=== PATIENT | female | born 1950 | race Caucasian/White ===

== ENCOUNTER 2016-03-29 08:08 | Observation (INO) | payer MEDICARE, OTHER ==
[2016-03-29] MEDS ORDERED: ASPIRIN 81 MG TABLET, CHEWABLE PO ONE (08:40)
--- NOTE | 2016-03-29 08:46 | ER Document Report ---
ED General <SUDHAKARADDISON - Last Filed: 03/29/16 11:05> - General TRAVEL OUTSIDE OF THE [place] IN LAST 30 DAYS: No <BEANMATHEW - Last Filed: 03/29/16 15:51> - General Chief Complaint: Headache Stated Complaint: LEFT SIDE PAIN Notes: Patient is a 65-year-old female with past medical history significant for hypertension, hyperlipidemia presents emergency Department complaining of left arm pressure with new onset this morning when she was driving down to see her physician in [place]. She denies any chest pain, shortness of breath, dizziness, altered mental status or confusion. Patient states that she has had a headache on and off for the past week described as a general pressure in her head that is relieved by aspirin. She also admits to elevated blood pressure yesterday during her preemployment physical exam. Patient states that she started a new job 3 weeks ago and is been very stressed. Stress test in 2004 normal S medical history significant for hypertension, hyperlipidemia, anxiety, GERD Past surgical history significant for left shoulder replacement tonsils and adenoids Social history denies any tobacco use, alcohol, drug use Family history significant for CVA in her dad, coronary artery disease in a paternal grandfather PCP is Dr. Domenic Holly in [place] (MATHEW DEL ANGEL) - Related Data Allergies/Adverse Reactions: atorvastatin [From Lipitor] Allergy (Verified 03/29/16 08:43) bupropion [From Contrave] Allergy (Verified 03/29/16 08:43) cephalexin Allergy (Verified 03/29/16 08:43) clindamycin Allergy (Verified 03/29/16 08:43) lamotrigine [From Lamictal] Allergy (Verified 03/29/16 08:43) naltrexone [From Contrave] Allergy (Verified 03/29/16 08:43) oxycodone Allergy (Verified 03/29/16 08:43) Penicillins Allergy (Verified 03/29/16 08:43) Home Medications: Current Home Medications Bupropion HCl [Wellbutrin Xl 300mg 24hr Tablet] 300 mg PO DAILY 03/29/16 [ History] Esomeprazole Magnesium [Nexium] 40 mg PO DAILY 03/29/16 [History] Fluoxetine HCl [Prozac] 20 mg PO DAILY 03/29/16 [History] Mirabegron [Myrbetriq] 50 mg PO DAILY 03/29/16 [History] Past Medical History - General Information source: Patient - Social History Smoking Status: Never Smoker Chew tobacco use (# tins/day): No Frequency of alcohol use: None Drug Abuse: None Family History: CAD, CVA Patient has suicidal ideation: No Patient has homicidal ideation: No Renal/ Medical History: Denies: Hx Peritoneal Dialysis <MATHEW DEL ANGEL - Last Filed: 03/29/16 15:51> Review of Systems - Review of Systems Constitutional: No symptoms reported EENT: No symptoms reported Cardiovascular: See HPI Respiratory: No symptoms reported Gastrointestinal: No symptoms reported Genitourinary: No symptoms reported Female Genitourinary: No symptoms reported Musculoskeletal: See HPI Skin: No symptoms reported Hematologic/Lymphatic: No symptoms reported Neurological/Psychological: See HPI <MATHEW DEL ANGEL - Last Filed: 03/29/16 15:51> Physical Exam <ADDISON DE LA FUENTE - Last Filed: 03/29/16 11:05> <MATHEW DEL ANGEL - Last Filed: 03/29/16 15:51> - Vital signs Vitals: Temp Pulse Resp BP Pulse Ox 97.7 F 72 18 150/78 H 97 03/29/16 08:13 03/29/16 08:13 03/29/16 08:13 03/29/16 08:13 03/29/16 08:13 (ADDISON DE LA FUENTE) (MATHEW DEL ANGEL) - Notes Notes: PHYSICAL EXAM GENERAL: Alert, interacts well. HEAD: Normocephalic, atraumatic. EYES: Pupils equal, round, and reactive to light. Extraocular movements intact. ENT: Facial muscles symmetrical. Oral mucosa moist, tongue midline. NECK: Full range of motion. Supple. Trachea midline. LUNGS: Clear to auscultation bilaterally, no wheezes, rales, or rhonchi. No respiratory distress. HEART: Regular rate and rhythm. No murmurs, gallops, or rubs. ABDOMEN: Soft, nondistended, nontender. No guarding, rebound, or rigidity.. Bowel sounds present in all 4 quadrants. EXTREMITIES: Moves all 4 extremities spontaneously. No pronator drift. No edema , radial and dorsalis pedis pulses 2/4 bilaterally. No cyanosis. Strength 5/5 in all extremities NEUROLOGICAL: Alert and oriented x3. Normal speech. PSYCH: Normal affect, normal mood. SKIN: Warm, dry, normal turgor. No rashes or lesions noted. (MATHEW DEL ANGEL) Course - Laboratory Result Diagrams: 03/29/16 09:40 03/29/16 09:40 <ADDISON DE LA FUENTE - Last Filed: 03/29/16 11:05> - Laboratory Result Diagrams: 03/29/16 09:40 03/29/16 09:40 - Diagnostic Test Radiology reviewed: Image reviewed, Reports reviewed - EKG Interpretation by Me EKG shows normal: Sinus rhythm Rate: Normal Rhythm: NSR When compared to previous EKG there are: Previous EKG unavailable - Consults Dr. Mitch Monique Time consulted: 11:15 Consulted provider: will come to ER <MATHEW DEL AGNEL - Last Filed: 03/29/16 15:51> - Re-evaluation Re-evalutation: 03/29/16 11:05 Patient was presented to me by the advanced practitioner, we discussed the patient's case imaging and lab work concerns. Patient was evaluated by myself and I agree with the providers care plan (ADDISON DE LA FUENTE) 03/29/16 11:20 Patient is a 65-year-old female who is hemodynamically stable, no acute distress and afebrile who presented with new onset left shoulder pressure after having an elevated blood pressure reading yesterday. Her EKG does not show any ST elevations or depressions. CT the head did not reveal any acute changes or any concern for an acute CVA CBC was within normal limits as well as her CMP. Only acute change is an elevated troponin at 0.024. Given that she has a history of high cholesterol, high blood pressure, her age of 65 and that she is a female in addition with her presentation and elevated blood work indicated for admission for chest pain observation. Case was discussed with Dr. Mitch Monique for telemetry. Patient is agreeable with plan. (MATHEW DEL ANGEL) - Vital Signs Vital signs: Temp Pulse Resp BP Pulse Ox 98.4 F 72 16 141/64 H 98 03/29/16 14:59 03/29/16 14:59 03/29/16 14:59 03/29/16 14:59 03/29/16 14:59 (ADDISON DE LA FUENTE) (MATHEW DEL ANGEL) - Laboratory Laboratory results interpreted by me: 03/29/16 09:40 Hgb 11.6 L Hct 35.8 L RDW 15.0 H (ADDISON DE LA FUENTE) - Consults Dr. Mitch Monique Reason for consultation: 03/29/16 11:22 hospital admission (MATHEW DEL ANGEL) Discharge <ADDISON DE LA FUENTE - Last Filed: 03/29/16 11:05> - Discharge Admitting Provider: Hospitalist - Dr. Mitch Monique Unit Admitted: Telemetry <MATHEW DEL ANGEL - Last Filed: 03/29/16 15:51> - Discharge Clinical Impression: Chest pain Qualifiers: Chest pain type: unspecified Qualified Code(s): R07.9 - Chest pain, unspecified Condition: Stable Disposition: ADMITTED OBSERVATION
[2016-03-29 10:09] LABS: ABSOLUTE EOSINOPHILS # (AUTO) 0.1 10^3/uL (0.0-0.6); ABSOLUTE LYMPHOCYTES (AUTO) 1.3 10^3/uL (0.5-4.7); ABSOLUTE MONOCYTES (AUTO) 0.5 10^3/uL (0.1-1.4); ABSOLUTE NEUT (AUTO) 2.4 10^3/uL (1.7-8.2); BASOPHILS % (AUTO) 0.6 % (0-2); EOSINOPHILS % (AUTO) 2.7 % (0-6); HEMATOCRIT 35.8 % (36.0-47.0); HEMOGLOBIN 11.6 g/dL (12.0-15.5); LYMPHOCYTES % (AUTO) 30.6 % (13-45); MEAN CORPUSCULAR HEMOGLOBIN 28.5 pg (27.0-33.4); MEAN CORPUSCULAR HGB CONC 32.3 g/dL (32.0-36.0); MEAN CORPUSCULAR VOLUME 88 fl (80-97); MONOCYTES % (AUTO) 10.8 % (3-13); RED BLOOD COUNT 4.05 10^6/uL (3.72-5.28); SEGMENTED NEUTROPHILS % (AUTO) 55.3 % (42-78); WHITE BLOOD COUNT 4.3 10^3/uL (4.0-10.5)
[2016-03-29 10:31] LABS: ALANINE AMINOTRANSFERASE 27 U/L (9-52); ALBUMIN 3.5 g/dL (3.5-5.0); ALKALINE PHOSPHATASE 97 U/L (38-126); ANION GAP 10 (5-19); ASPARTATE AMINO TRANSFERASE 24 U/L (14-36); BILIRUBIN,TOTAL 0.4 mg/dL (0.2-1.3); BLOOD UREA NITROGEN 12 mg/dL (7-20); CALCIUM 9.1 mg/dL (8.4-10.2); CARBON DIOXIDE 24 mmol/L (22-30); CHLORIDE 106 mmol/L (98-107); CREATINE KINASE 108 U/L (30-135); CREATININE RESULT 0.71 mg/dL (0.52-1.25); GLUCOSE 88 mg/dL (75-110); POTASSIUM 4.5 mmol/L (3.6-5.0); SODIUM 140.4 mmol/L (137-145); TOTAL PROTEIN 6.5 g/dL (6.3-8.2)
[2016-03-29 10:42] LABS: CREATINE KINASE MB 0.43 ng/mL (<4.55); TROPONIN I 0.024 ng/mL
--- NOTE | 2016-03-29 11:44 | EKG REPORT ---
SEVERITY:- BORDERLINE ECG - SINUS RHYTHM BORDERLINE T ABNORMALITIES, ANTERIOR LEADS : Confirmed by: Maisha Tenorio MD 29-Mar-2016 11:44:06
[2016-03-29] MEDS ORDERED: LISINOPRIL 10 MG TABLET PO ONE (13:53)
--- NOTE | 2016-03-29 15:56 | PDOC H&P ---
History of Present Illness Admission Date/PCP: 03/29/16 11:11 Dr. Holly in [facility], [place] Patient complains of: Left arm pain History of Present Illness: VIPIN FENTON is a 65 year old female with past medical history significant for hypertension, hyperlipidemia presents emergency Department complaining of left arm pressure with new onset this morning when she was driving down to see her physician in [place]. She denies any chest pain, shortness of breath, dizziness, altered mental status or confusion. Patient states that she has had a headache on and off for the past week described as a general pressure in her head that is relieved by aspirin. She also admits to elevated blood pressure yesterday during her preemployment physical exam. The patient states she had a stress test in 2004 which was normal. The patient states that she's also had hypertension in the past however her blood pressure medications were stopped because she felt very poorly while she was only minimal as well as admits to anemia during that time. Patient states that she started a new job 3 weeks ago and is been very stressed.The patient was referred to the hospitalists for observation and management. MEDICATIONS: The medications listed in this document may have been auto- populated from previous contact and may not been verified or reconciled. This may not be an accurate reflection of the patient's home medication(s); however, authors are unable to edit or delete the medications listed in this document as "home medications". Past Medical History Cardiac Medical History: Reports: Hyperlipidema, Hypertension GI Medical History: Reports: Gastroesophageal Reflux Disease Past Surgical History Past Surgical History: Reports: Orthopedic Surgery - Left total shoulder replacement Social History Information Source: Patient Occupation: Speech pathologist Lives with: Alone Smoking Status: Never Smoker Frequency of Alcohol Use: None Hx Recreational Drug Use: No Hx Prescription Drug Abuse: No - Advance Directive Resuscitation Status: Full Code Surrogate healthcare decision maker:: Anupama Azul [phone] Family History Family History: Reviewed & Not Pertinent Parental Family History Reviewed: Yes - father: from motor vehicle collision Children Family History Reviewed: NA Sibling(s) Family History Reviewed.: Yes - The patient is estranged but as far she knows they are alive and healthy Medication/Allergy Home Medications: Bupropion HCl [Wellbutrin Xl 300mg 24hr Tablet] 300 mg PO DAILY 01/24/17 Esomeprazole Magnesium [Nexium] 40 mg PO DAILY 03/29/16 Fluoxetine HCl [Prozac] 20 mg PO DAILY 03/29/16 Mirabegron [Myrbetriq] 50 mg PO DAILY 03/29/16 Allergies/Adverse Reactions: atorvastatin [From Lipitor] Allergy (Verified 03/29/16 08:43) bupropion [From Contrave] Allergy (Verified 03/29/16 08:43) cephalexin Allergy (Verified 03/29/16 08:43) clindamycin Allergy (Verified 03/29/16 08:43) lamotrigine [From Lamictal] Allergy (Verified 03/29/16 08:43) naltrexone [From Contrave] Allergy (Verified 03/29/16 08:43) oxycodone Allergy (Verified 03/29/16 08:43) Penicillins Allergy (Verified 03/29/16 08:43) Review of Systems Constitutional: ABSENT: chills, fever(s), headache(s), weight gain, weight loss Eyes: ABSENT: visual disturbances Ears: ABSENT: hearing changes Cardiovascular: PRESENT: chest pain. ABSENT: dyspnea on exertion, edema, orthropnea, palpitations Respiratory: ABSENT: cough, hemoptysis Gastrointestinal: ABSENT: abdominal pain, constipation, diarrhea, hematemesis, hematochezia, nausea, vomiting Genitourinary: ABSENT: dysuria, hematuria Musculoskeletal: ABSENT: joint swelling Integumentary: ABSENT: rash, wounds Neurological: ABSENT: abnormal gait, abnormal speech, confusion, dizziness, focal weakness, syncope Psychiatric: ABSENT: anxiety, depression, homidical ideation, suicidal ideation Endocrine: ABSENT: cold intolerance, heat intolerance, polydipsia, polyuria Hematologic/Lymphatic: ABSENT: easy bleeding, easy bruising Physical Exam Vital Signs: Temp Pulse Resp BP Pulse Ox 98.4 F 72 16 141/64 H 98 03/29/16 14:59 03/29/16 14:59 03/29/16 14:59 03/29/16 14:59 03/29/16 14:59 General appearance: PRESENT: no acute distress, cooperative, well-developed, well-nourished Head exam: PRESENT: atraumatic, normocephalic Eye exam: PRESENT: conjunctiva pink, EOMI, PERRLA. ABSENT: scleral icterus Ear exam: PRESENT: normal external ear exam Mouth exam: PRESENT: moist, tongue midline Neck exam: ABSENT: carotid bruit, JVD, lymphadenopathy, thyromegaly Respiratory exam: PRESENT: clear to auscultation dave. ABSENT: rales, rhonchi, wheezes Cardiovascular exam: PRESENT: RRR. ABSENT: diastolic murmur, rubs, systolic murmur Pulses: PRESENT: normal dorsalis pedis pul Vascular exam: PRESENT: normal capillary refill GI/Abdominal exam: PRESENT: normal bowel sounds, soft. ABSENT: distended, guarding, mass, organolmegaly, rebound, tenderness Rectal exam: PRESENT: deferred Extremities exam: PRESENT: full ROM. ABSENT: calf tenderness, clubbing, pedal edema Neurological exam: PRESENT: alert, awake, oriented to person, oriented to place , oriented to time, oriented to situation, CN II-XII grossly intact. ABSENT: motor sensory deficit Psychiatric exam: PRESENT: appropriate affect, normal mood. ABSENT: homicidal ideation, suicidal ideation Skin exam: PRESENT: dry, intact, warm. ABSENT: cyanosis, rash Results Laboratory Results: Labs- Last Values WBC 4.3 10^3/uL (4.0-10.5) 03/29/16 09:40 RBC 4.05 10^6/uL (3.72-5.28) 03/29/16 09:40 Hgb 11.6 g/dL (12.0-15.5) L 03/29/16 09:40 Hct 35.8 % (36.0-47.0) L 03/29/16 09:40 MCV 88 fl (80-97) 03/29/16 09:40 MCH 28.5 pg (27.0-33.4) 03/29/16 09:40 MCHC 32.3 g/dL (32.0-36.0) 03/29/16 09:40 RDW 15.0 % (11.5-14.0) H 03/29/16 09:40 Plt Count 337 10^3/uL (150-450) 03/29/16 09:40 Seg Neutrophils % 55.3 % (42-78) 03/29/16 09:40 Lymphocytes % 30.6 % (13-45) 03/29/16 09:40 Monocytes % 10.8 % (3-13) 03/29/16 09:40 Eosinophils % 2.7 % (0-6) 03/29/16 09:40 Basophils % 0.6 % (0-2) 03/29/16 09:40 Absolute Neutrophils 2.4 10^3/uL (1.7-8.2) 03/29/16 09:40 Absolute Lymphocytes 1.3 10^3/uL (0.5-4.7) 03/29/16 09:40 Absolute Monocytes 0.5 10^3/uL (0.1-1.4) 03/29/16 09:40 Absolute Eosinophils 0.1 10^3/uL (0.0-0.6) 03/29/16 09:40 Absolute Basophils 0.0 10^3/uL (0.0-0.2) 03/29/16 09:40 Sodium 140.4 mmol/L (137-145) 03/29/16 09:40 Potassium 4.5 mmol/L (3.6-5.0) 03/29/16 09:40 Chloride 106 mmol/L (98-107) 03/29/16 09:40 Carbon Dioxide 24 mmol/L (22-30) 03/29/16 09:40 Anion Gap 10 (5-19) 03/29/16 09:40 BUN 12 mg/dL (7-20) 03/29/16 09:40 Creatinine 0.71 mg/dL (0.52-1.25) 03/29/16 09:40 Est GFR ( Amer) > 60 (>60) 03/29/16 09:40 Est GFR (Non-Af Amer) > 60 (>60) 03/29/16 09:40 Glucose 88 mg/dL (75-110) 03/29/16 09:40 Calcium 9.1 mg/dL (8.4-10.2) 03/29/16 09:40 Total Bilirubin 0.4 mg/dL (0.2-1.3) 03/29/16 09:40 Direct Bilirubin 0.0 mg/dL (0.0-0.3) 03/29/16 09:40 AST 24 U/L (14-36) 03/29/16 09:40 ALT 27 U/L (9-52) 03/29/16 09:40 Alkaline Phosphatase 97 U/L (38-126) 03/29/16 09:40 Creatine Kinase 108 U/L (30-135) 03/29/16 09:40 CK-MB (CK-2) 0.43 ng/mL (<4.55) 03/29/16 09:40 Troponin I < 0.012 ng/mL 03/29/16 13:55 Total Protein 6.5 g/dL (6.3-8.2) 03/29/16 09:40 Albumin 3.5 g/dL (3.5-5.0) 03/29/16 09:40 Impressions: Chest X-Ray 03/29/16 08:40 IMPRESSION: No acute changes Large retrocardiac hiatal hernia Head CT 03/29/16 08:40 IMPRESSION: NORMAL BRAIN CT WITHOUT CONTRAST. Assessment & Plan - Diagnosis (1) Chest pain Qualifiers: Chest pain type: unspecified Qualified Code(s): R07.9 - Chest pain, unspecified Is this a current diagnosis for this admission?: YesPlan: Currently chest pain-free. This may be secondary to stress as well as the patient's hypertension. However given risk factors will schedule for Cardiolite stress test. Will observe the patient continues telemetry unit, obtain serial cardiac enzymes, repeat EKG, and obtain lipid panel in the a.m. Given the patient's risk factors will schedule for Cardiolite stress test. (2) Hypertension Qualifiers: Hypertension type: essential hypertension Qualified Code(s): I10 - Essential (primary) hypertension Is this a current diagnosis for this admission?: YesPlan: Will start the patient on moderate dose farrah. And check blood pressures and follow. (3) Obesity Qualifiers: Obesity type: due to excess calories Is this a current diagnosis for this admission?: YesPlan: Will encourage weight reduction (4) GERD (gastroesophageal reflux disease) Qualifiers: Esophagitis presence: without esophagitis Qualified Code(s): K21.9 - Gastro-esophageal reflux disease without esophagitis Is this a current diagnosis for this admission?: YesPlan: Will continue home medications. (5) DVT prophylaxis Is this a current diagnosis for this admission?: YesPlan: Will add Lovenox - Time Time Spent with patient: Time spent on this admission including assessment, plan, physical examination, and patient education is 50 minutes. Time Spent: 50 to 70 Minutes Medications reviewed and adjusted accordingly: Yes Anticipated discharge: Home Within: within 24 hours Disposition: The patient is a full code. Pending patient's symptomatology and diagnostic findings will reevaluate in the a.m.
[2016-03-29] MEDS: LANSOPRAZOLE 30 MG TAB.RAP.DR PO SCH (17:52)
[2016-03-29] MEDS ORDERED: FLUOXETINE HCL 20 MG CAPSULE PO SCH (18:00)
[2016-03-29] MEDS: LISINOPRIL 10 MG TABLET PO SCH (22:35)
[2016-03-29] MEDS: BUPROPION HCL 75 MG TABLET PO SCH (23:17)
[2016-03-30] MEDS ORDERED: BUPROPION HCL 75 MG TABLET ONE (00:42)
[2016-03-30] MEDS: LANSOPRAZOLE 30 MG TAB.RAP.DR PO SCH (05:33)
[2016-03-30 06:25] LABS: CHOLESTEROL 241.53 mg/dL (0-200); Direct HDL 44 mg/dL (>40); TRIGLYCERIDES 173 mg/dL (<150)
[2016-03-30 06:35] LABS: DIRECT LDL 168 mg/dL (<100)
[2016-03-30 06:38] LABS: VLDL CHOLESTEROL 34.6 mg/dL (10-31)
[2016-03-30] MEDS ORDERED: ENOXAPARIN SODIUM INJ 40 MG/0.4 ML DISP.SYRIN SUBCUT SCH (08:00)
[2016-03-30] MEDS ORDERED: (PENDING PHARMACY ID) (Mirabegron [Myrbetriq] 50 MG) PO SCH (10:00)
[2016-03-30] MEDS: LISINOPRIL 10 MG TABLET PO SCH (12:58)
[2016-03-30] MEDS: BUPROPION HCL 75 MG TABLET PO SCH (12:58)
--- NOTE | 2016-03-30 14:37 | DRAGON STRESS TEST REPORT ---
INTRAVENOUS LEXISCAN CARDIOLITE STRESS TEST USING SINGLE PHOTON EMMISION COMPUTERIZED TOMOGRAPHIC. DATE OF PROCEDURE: March 30, 2016 INDICATION : Chest pain and shortness of breath CARDIAC RISK FACTORS: Hypertension RESTING EKG: Sinus rhythm with some minor nonspecific T wave changes STRESS EKG: No significant changes noted with LexiScan bolus REASON FOR TERMINATION: Protocol. PROCEDURE REPORT: Baseline heart rate 76 beats per minute with blood pressure of 123/51. Patient had no significant complaints. Heart rate at 2 minutes post bolus 94 with a blood pressure of 138/58. 3 minutes post bolus heart rate 94 with blood pressure of 138/58. No significant EKG changes were noted. Patient had no significant complaints during the procedure or postprocedure. CONCLUSIONS: Normal EKG and hemodynamic response to IV LexiScan. NUCLEAR DATA: At rest the patient was given 14.77 millicuries of technetium 99 sestamibi injected intravenously. As per protocol rest gated SPECT images were obtained. Subsequently the patient was given intravenous LexiScan at a dose of 0.4 mg in 5 mL intravenously, followed by flush with normal saline. Subsequently the stress dose of 43.6 millicuries of technetium 99 sestamibi was injected intravenously. As per protocol stress gated images were obtained. NUCLEAR INTERPRETATION: Both raw and processed data were used for interpretation. Visual, qualitative, computer-generated quantitative data was used. There was good myocardial uptake of technetium compound. Motion artifact and soft tissue attenuations were noted. Increased visceral uptake was noted. No definitive areas of transient perfusion defect noted. No definitive areas of fixed perfusion defect or scars noted. EKG gated imaging showed LV EF at 49 %, rest and stress gated EF similar visually. T. I D. ratio was 1.17. Lung heart ratio noted to be within normal limits 0.31. No significant extracardiac and abnormal radiotracer activities were noted. RV free wall uptake was noted to be borderline increased. IMPRESSION: Also refer to comments under nuclear interpretation. Also test results needs to be interpreted in the context of pretest probability. 1. There is no definitive scintigraphic evidence of LexiScan induced myocardial ischemia. 2. There is no definitive scintigraphic evidence of myocardial infarction/scar. 3. EKG gated imaging shows left ejection fraction of approximately at 49 %. 4. Clinical correlation requested as occasionally single vessel disease or balanced ischemia could be missed. In approximately 10% of the cases Lexiscan may not cause adequate vasodilatory stress. RECOMMENDATIONS: Aggressive risk factor modification, medical therapy. Clinical correlation with echocardiogram derived ejection fraction. Inability to exercise by itself can lead to increased cardiovascular event risks. Consider cardiology consultation if clinically indicated. I AM AVAILABLE FOR CARDIOLOGY CONSULTATION AND FOLLOWUP IF REQUESTED BY PMD [facility] M.D., MRCP Supervisor [employer] volleyball coach, Board certified in cardiovascular diseases, Nuclear cardiology, Echocardiography Cardiac CT and cardiac MRI Ph. [phone] [facility]
[2016-03-30] MEDS ORDERED: REGADENOSON INJ 0.4 MG/5 ML DISP.SYRIN IV ONE (14:40)
--- NOTE | 2016-03-30 14:50 | Physician Advisory Note ---
Physician Advisor ProgressNote .: [facility] for [facility]. Physician Advisor Statement: Nice documentation - even already stating most likely cause of CP in notes already! You do such a great job. Any suspicions on type of anemia? (chronic nutritional Fe defic? chronic blood loss Fe defic? chronic nutritional folate defic? ...] CK
--- NOTE | 2016-03-30 14:55 | EKG REPORT ---
SEVERITY:- BORDERLINE ECG - SINUS RHYTHM BORDERLINE T WAVE ABNORMALITIES : Confirmed by: Maisha Tenorio MD 30-Mar-2016 14:54:43
--- NOTE | 2016-03-30 14:59 | PDOC CONSULTATION ---
[id number]: Chest pain History of Present Illness Admission Date/PCP: 03/29/16 11:11 History of Present Illness: VIPIN FENTON is a 65 year old female with past medical history significant for hypertension, hyperlipidemia presents emergency Department complaining of left arm pressure with new onset this morning when she was driving down to see her physician in [place]. She denies any chest pain, shortness of breath, dizziness, altered mental status or confusion. Patient states that she has had a headache on and off for the past week described as a general pressure in her head that is relieved by aspirin. She also admits to elevated blood pressure yesterday during her preemployment physical exam. The patient states she had a stress test in 2004 which was normal. The patient states that she's also had hypertension in the past however her blood pressure medications were stopped because she felt very poorly while she was only minimal as well as admits to anemia during that time. Patient states that she started a new job 3 weeks ago and is been very stressed.The patient was referred to the hospitalists for observation and management. Patient claims history of sleep disorder. She claims she had a sleep study about a year or 2 ago which was noted to be negative. Patient gives history of snoring, difficulty falling asleep and staying asleep. She has some daytime sleepiness. Above history reviewed and confirmed. Past Medical History Cardiac Medical History: Reports: Hyperlipidema, Hypertension GI Medical History: Reports: Gastroesophageal Reflux Disease Psychiatric Medical History: Reports: Depression Past Surgical History Past Surgical History: Reports: Orthopedic Surgery - Left total shoulder replacement Social History Lives with: Alone Smoking Status: Never Smoker Frequency of Alcohol Use: None Hx Recreational Drug Use: No Drugs: None Hx Prescription Drug Abuse: No - Advance Directive Resuscitation Status: Full Code Family History Family History: Reviewed & Not Pertinent Parental Family History Reviewed: Yes Children Family History Reviewed: Yes Sibling(s) Family History Reviewed.: Yes - Negative for premature coronary artery disease or sudden cardiac in the family amongst first degree relatives. Medication/Allergy Home Medications: Bupropion HCl [Wellbutrin Xl 300mg 24hr Tablet] 300 mg PO DAILY 03/29/16 Esomeprazole Magnesium [Nexium] 40 mg PO DAILY 03/29/16 Fluoxetine HCl [Prozac] 20 mg PO DAILY 03/29/16 Mirabegron [Myrbetriq] 50 mg PO DAILY 03/29/16 Lisinopril [Prinivil 10 mg Tablet] 10 mg PO Q12 #60 tablet 03/30/16 Allergies/Adverse Reactions: atorvastatin [From Lipitor] Allergy (Verified 03/29/16 08:43) bupropion [From Contrave] Allergy (Verified 03/29/16 08:43) cephalexin Allergy (Verified 03/29/16 08:43) clindamycin Allergy (Verified 03/29/16 08:43) lamotrigine [From Lamictal] Allergy (Verified 03/29/16 08:43) naltrexone [From Contrave] Allergy (Verified 03/29/16 08:43) oxycodone Allergy (Verified 03/29/16 08:43) Penicillins Allergy (Verified 03/29/16 08:43) Review of Systems Review of Systems: Please see history of present illness and past medical history as wall. Constitutional: No fever or chills reported. Head : No recent chronic headaches, recent head injury. Eyes: No recent eye pain, diplopia, redness, discharge, acute visual changes. Ears: No recent chronic ear pain, acute hearing loss, ear discharge. Oral cavity: No recent ulcerations, bleeding, oral cavity discomfort. Neck: No recent acute neck pain reported. Hematologic: No recent easy bruising or bleeding or hematologic malignancy reported. Lymphatic: No recent lymphatic malignancy, chronic lymphadenopathy reported yet Cardiovascular system review: See history of present illness. Respiratory system review: No recent chronic cough, hemoptysis, blood clots in the lungs reported. Mild Shortness of breath on exertion Gastrointestinal system review: Negative for any recent acute or chronic abdominal pain, hematemesis, melena, recent change in bowel habits. Genitourinary system review: No recent acute or chronic hematuria, flank pain, UTI etc. reported. Skin system review: Negative for any recent abnormal bruising, no rash, no pruritus reported. Neurologic: No prior history of strokes, mini strokes, seizure disorder. Psychologic: No history of major psychosis or depression reported. Musculoskeletal: Minor aches and pains reported. No acute joint swelling reported. Endocrine: No recent polyuria, polydipsia, recent heat or cold intolerance. Physical Exam Vital Signs: Temp Pulse Resp BP Pulse Ox 97.3 F 77 12 126/44 H 98 03/30/16 12:14 03/30/16 12:14 03/30/16 12:14 03/30/16 12:14 03/30/16 12:14 Intake & Output 03/29/16 03/30/16 03/31/16 06:59 06:59 06:59 Intake Total 0 Balance 0 Weight 103.1 kg Exam: GENERAL: well-nourished and in no acute distress. Alert and oriented x3 HEAD: Atraumatic, normocephalic. EYES: Pupils equal round and reactive to light, extraocular movements intact, sclera anicteric, conjunctiva are normal. ENT: TMs normal, nares patent, oropharynx clear without exudates. Moist mucous membranes. No oral ulcerations or bleeding gums noted NECK: supple without lymphadenopathy. Trachea is central. No cervical or axillary lymphadenopathy noted. Carotids are 2+, JVD WNL LUNGS: Respiration seems nonlabored, no significant accessory muscle action noted. Breath sounds clear to auscultation bilaterally and equal. No wheezes rales or rhonchi. No significant dullness noted on percussion. CHEST: Palpation of the chest wall shows no significant chest wall tenderness or abnormalities. HEART: [place] [employer], No PSH, 1/6 ANGELA aortic area, 1/6 martinez systolic murmur mitral area, no rubs, no gallops. ABDOMEN: Soft, no significant tenderness appreciated, normoactive bowel sounds. No guarding, no rebound. No rigidity noted . No masses appreciated. EXTREMITIES: Pedal pulses are 1-2+, no calf tenderness noted. No clubbing or cyanosis.trace to 1+ pedal edema noted NEUROLOGICAL: Focused neurological exam showed no significant neurologic deficit. Normal speech, no focal weakness appreciated. PSYCH: Normal mood, normal affect. Judgment and insight within normal limits. SKIN: No significant ecchymosis, rash, ulcerations or signs of pruritus noted. MUSCULOSKELETAL EXAM: No significant joint swelling noted. Results Laboratory Results: 03/30/16 05:00 Triglycerides 173 H Cholesterol 241.53 H LDL Cholesterol Direct 168 H VLDL Cholesterol 34.6 H HDL Cholesterol 44 03/29/16 03/29/16 13:55 20:55 Troponin I < 0.012 < 0.012 Impressions: Chest X-Ray 03/29/16 08:40 IMPRESSION: No acute changes Large retrocardiac hiatal hernia Head CT 01/24/17 08:40 IMPRESSION: NORMAL BRAIN CT WITHOUT CONTRAST. Assessment & Plan - Diagnosis (1) Chest pain Qualifiers: Chest pain type: unspecified Qualified Code(s): R07.9 - Chest pain, unspecified Is this a current diagnosis for this admission?: Yes (2) GERD (gastroesophageal reflux disease) Qualifiers: Esophagitis presence: without esophagitis Qualified Code(s): K21.9 - Gastro-esophageal reflux disease without esophagitis Is this a current diagnosis for this admission?: Yes (3) Hypertension Qualifiers: Hypertension type: essential hypertension Qualified Code(s): I10 - Essential (primary) hypertension Is this a current diagnosis for this admission?: Yes (4) Obesity Qualifiers: Obesity type: due to excess calories Is this a current diagnosis for this admission?: Yes (5) Dyslipidemia Is this a current diagnosis for this admission?: Yes (6) Sleep-disordered breathing Is this a current diagnosis for this admission?: Yes - Notes Notes: Chest pain: Patient has some typical and atypical features of chest pain. Cardiac enzymes so far has been negative. Electrocardiogram did not show any definitive ST segment changes. Multiple differential diagnoses exist in this patient. In descending order of probability this includes underlying coronary artery disease, gastroesophageal reflux, musculoskeletal pain, referred pain from elsewhere, anxiety panic disorder etc.Patient has significant cardiac risk factors, which indicates that there is a intermediate probability of chest discomfort coming from underlying CAD. Feel that it would need to be evaluated further. Discussed evaluation to assess this. In this regard risk benefits of nuclear stress test and other alternative processes were discussed in detail. The patient prefers to undergo nuclear stress test. The small risk of radiation , myocardial infarction, , cardiac arrhythmias, respiratory distress etc. were discussed. Patient understood the risks and gave informed consent. Nuclear stress test was therefore scheduled and was performed. Hypertension:Blood pressure goal in this patient is 140/90 or less. This was discussed with the patient. Currently blood pressure under reasonable control. Better medication for this patient are CANDELARIO inhibitor/ARB/beta annmarie etc. discussed side effects of uncontrolled hypertension and also severe hypotension. Obesity:Discussed adverse effect of overweight/obesity on cardiovascular event rate, sleep apnea, diabetes and hypertension et cetera. Patient has been recommended weight loss. Patient advised in weight loss. In this regard portion control, substitution, calorie restriction and regular exercise plan discussed. Patient informed that I would be happy to help for outpatient management of weight loss. Risk associated with being overweight and obesity discussed. This included both mechanical and metabolic complications. Sleep disorder: This is suspect that based on patient's symptoms of snoring, daytime fatigue and somnolence. Patient also has difficulty falling asleep and staying asleep. Patient has obesity and oropharyngeal exams suggest high probability of underlying sleep apnea syndrome. Have discussed this with the patient. Discussed increased risk of cardiovascular event rate, cerebrovascular accident, cardiac arrhythmias, uncontrolled hypertension etc. as being associated with untreated sleep apnea. Discussed that we'll be happy to schedule this as an outpatient. Patient has been recommended weight loss, sleep hygiene. Dyslipidemia:Patient noted to have dyslipidemia. LDL goal is less than 70. Recommend statin therapy at least intermediate or high dose, of high potency status. Periodic lipid panel and liver panel is indicated. Patient to report any significant muscle discomfort or other side effects. Patient was seen multiple times. In the morning nuclear stress test procedure, risks benefits, alternatives were discussed. Patient seen during the stress test. Patient also seen after stress test when results were discussed with the patient in detail. Patient's questions were answered. Nuclear stress test results were discussed with the patient. Patient was informed that no definitive evidence of pharmacologic stress-induced ischemia noted. No definite fixed defects were noted. Patient informed that occasionally significant single vessel disease or balanced ischemia could be missed. However based on the current study results, would recommend aggressive risk factor modification and medical therapy. It may also be worthwhile to consider evaluation or empiric management of other causes of chest pain. Should no other cause be found and if persistent in having chest pain, then cardiac catheterization should be considered. Right now, recommendations are for aggressive risk factor modification and medical management. - Time Time Spent: 30 to 50 Minutes - More than 50% of the time spent coordinating care , discussing management plans with involved caregivers. Management plans discussed with involved personnels. Medical decision making was of moderate complexity.CODE STATUS was discussed, patient remains full code. Multiple medical problems were addressed. Medications reviewed and adjusted accordingly: Yes
[2016-03-30 15:21] VITALS: BP 127/56
--- NOTE | 2016-03-30 16:58 | PDOC DISCHARGE SUMMARY ---
General - Admit/Disc Date/PCP Admission Date/Primary Care Provider: 03/29/16 11:11 Dr. Holly Discharge Date: 03/30/16 - Discharge Diagnosis (1) Dyslipidemia Is this a current diagnosis for this admission?: Yes (2) Chest pain Is this a current diagnosis for this admission?: Yes (3) Hypertension Is this a current diagnosis for this admission?: Yes (4) Obesity Is this a current diagnosis for this admission?: Yes (5) GERD (gastroesophageal reflux disease) Is this a current diagnosis for this admission?: Yes (6) DVT prophylaxis Is this a current diagnosis for this admission?: Yes - Additional Information Resuscitation Status: Full Code Discharge Diet: Cardiac Discharge Activity: Activity As Tolerated Home Medications: Bupropion HCl [Wellbutrin Xl 300mg 24hr Tablet] 300 mg PO DAILY 03/29/16 Esomeprazole Magnesium [Nexium] 40 mg PO DAILY 03/29/16 Fluoxetine HCl [Prozac] 20 mg PO DAILY 03/29/16 Mirabegron [Myrbetriq] 50 mg PO DAILY 03/29/16 Lisinopril [Prinivil 10 mg Tablet] 10 mg PO Q12 #60 tablet 03/30/16 History of Present Illness Patient complains of: Chest pain History of Present Illness: VIPIN EFNTON is a 65 year old female with past medical history significant for hypertension, hyperlipidemia presents emergency Department complaining of left arm pressure with new onset this morning when she was driving down to see her physician in [place]. She denies any chest pain, shortness of breath, dizziness, altered mental status or confusion. Patient states that she has had a headache on and off for the past week described as a general pressure in her head that is relieved by aspirin. She also admits to elevated blood pressure yesterday during her preemployment physical exam. The patient states she had a stress test in 2004 which was normal. The patient states that she's also had hypertension in the past however her blood pressure medications were stopped because she felt very poorly while she was only minimal as well as admits to anemia during that time. Patient states that she started a new job 3 weeks ago and is been very stressed.The patient was referred to the hospitalists for observation and management. Hospital Course Hospital Course: The patient was observed in a continues telemetry unit, serial cardiac enzymes were obtained which were nonsuggestive. The patient's EKG revealed no acute changes and the patient had no events on monitoring engineer. Patient had no further replication of symptoms. The patient's Cardiolite stress test will was unremarkable. The patient was found to have significant dyslipidemia however the patient's but unable to tolerate statins in the past. I discussed other alternatives with the patient however she wishes to defer this to her primary care provider. The patient was seen and evaluated and cleared for discharge from a cardiology perspective. Physical Exam Vital Signs: Temp Pulse Resp BP Pulse Ox 97.3 F 77 12 127/56 H 98 03/30/16 15:15 03/30/16 15:15 03/30/16 15:15 03/30/16 15:15 03/30/16 15:15 Intake & Output 03/28/16 03/29/16 03/30/16 23:59 23:59 23:59 Intake Total 0 Balance 0 Weight 103.1 kg General appearance: PRESENT: no acute distress, cooperative, well-developed, well-nourished Head exam: PRESENT: atraumatic, normocephalic Eye exam: PRESENT: conjunctiva pink, EOMI, PERRLA. ABSENT: scleral icterus Ear exam: PRESENT: normal external ear exam Mouth exam: PRESENT: moist, tongue midline Neck exam: ABSENT: carotid bruit, JVD, lymphadenopathy, thyromegaly Respiratory exam: PRESENT: clear to auscultation dave, symmetrical, unlabored. ABSENT: rales, rhonchi, tachypnea, wheezes Cardiovascular exam: PRESENT: RRR. ABSENT: diastolic murmur, rubs, systolic murmur Pulses: PRESENT: normal dorsalis pedis pul Vascular exam: PRESENT: normal capillary refill GI/Abdominal exam: PRESENT: normal bowel sounds, soft. ABSENT: distended, guarding, mass, organolmegaly, rebound, tenderness Rectal exam: PRESENT: deferred Extremities exam: PRESENT: full ROM. ABSENT: calf tenderness, clubbing, pedal edema Neurological exam: PRESENT: alert, awake, oriented to person, oriented to place , oriented to time, oriented to situation, CN II-XII grossly intact. ABSENT: motor sensory deficit Psychiatric exam: PRESENT: appropriate affect, normal mood. ABSENT: homicidal ideation, suicidal ideation Skin exam: PRESENT: dry, intact, warm. ABSENT: cyanosis, rash Results Laboratory Results: Labs- Last Values WBC 4.3 10^3/uL (4.0-10.5) 03/29/16 09:40 RBC 4.05 10^6/uL (3.72-5.28) 03/29/16 09:40 Hgb 11.6 g/dL (12.0-15.5) L 03/29/16 09:40 Hct 35.8 % (36.0-47.0) L 03/29/16 09:40 MCV 88 fl (80-97) 03/29/16 09:40 MCH 28.5 pg (27.0-33.4) 03/29/16 09:40 MCHC 32.3 g/dL (32.0-36.0) 03/29/16 09:40 RDW 15.0 % (11.5-14.0) H 03/29/16 09:40 Plt Count 337 10^3/uL (150-450) 03/29/16 09:40 Seg Neutrophils % 55.3 % (42-78) 03/29/16 09:40 Lymphocytes % 30.6 % (13-45) 03/29/16 09:40 Monocytes % 10.8 % (3-13) 03/29/16 09:40 Eosinophils % 2.7 % (0-6) 03/29/16 09:40 Basophils % 0.6 % (0-2) 03/29/16 09:40 Absolute Neutrophils 2.4 10^3/uL (1.7-8.2) 03/29/16 09:40 Absolute Lymphocytes 1.3 10^3/uL (0.5-4.7) 03/29/16 09:40 Absolute Monocytes 0.5 10^3/uL (0.1-1.4) 03/29/16 09:40 Absolute Eosinophils 0.1 10^3/uL (0.0-0.6) 03/29/16 09:40 Absolute Basophils 0.0 10^3/uL (0.0-0.2) 03/29/16 09:40 Sodium 140.4 mmol/L (137-145) 03/29/16 09:40 Potassium 4.5 mmol/L (3.6-5.0) 03/29/16 09:40 Chloride 106 mmol/L (98-107) 03/29/16 09:40 Carbon Dioxide 24 mmol/L (22-30) 03/29/16 09:40 Anion Gap 10 (5-19) 03/29/16 09:40 BUN 12 mg/dL (7-20) 03/29/16 09:40 Creatinine 0.71 mg/dL (0.52-1.25) 03/29/16 09:40 Est GFR ( Amer) > 60 (>60) 03/29/16 09:40 Est GFR (Non-Af Amer) > 60 (>60) 03/29/16 09:40 Glucose 88 mg/dL (75-110) 03/29/16 09:40 Calcium 9.1 mg/dL (8.4-10.2) 03/29/16 09:40 Total Bilirubin 0.4 mg/dL (0.2-1.3) 03/29/16 09:40 Direct Bilirubin 0.0 mg/dL (0.0-0.3) 03/29/16 09:40 AST 24 U/L (14-36) 03/29/16 09:40 ALT 27 U/L (9-52) 03/29/16 09:40 Alkaline Phosphatase 97 U/L (38-126) 03/29/16 09:40 Creatine Kinase 108 U/L (30-135) 03/29/16 09:40 CK-MB (CK-2) 0.43 ng/mL (<4.55) 03/29/16 09:40 Troponin I < 0.012 ng/mL 03/29/16 20:55 Total Protein 6.5 g/dL (6.3-8.2) 03/29/16 09:40 Albumin 3.5 g/dL (3.5-5.0) 03/29/16 09:40 Triglycerides 173 mg/dL (<150) H 03/30/16 05:00 Cholesterol 241.53 mg/dL (0-200) H 03/30/16 05:00 LDL Cholesterol Direct 168 mg/dL (<100) H 03/30/16 05:00 VLDL Cholesterol 34.6 mg/dL (10-31) H 03/30/16 05:00 HDL Cholesterol 44 mg/dL (>40) 03/30/16 05:00 Impressions: Chest X-Ray 03/29/16 08:40 IMPRESSION: No acute changes Large retrocardiac hiatal hernia Head CT 03/29/16 08:40 IMPRESSION: NORMAL BRAIN CT WITHOUT CONTRAST. Qualifiers PATEINT BEING DISCHARGED WITH ANY OF THE FOLLOWING DIAGNOSIS?: No Plan Discharge Plan: The patient is to followup with their primary care provider, Dr. Holly, within one week for hospital followup regarding lipidemia and hypertension. Time Spent: Less than 30 Minutes
== END 2016-03-30 15:37 | disposition home or self-care (01) ==
LOC: ER 08:08 → EH 11:11 → UNDOADMOB 11:31 → EH 11:31 → 5 03-30 01:38
PROVIDERS: ADMIT Family Medicine; ATTEND Family Medicine
DX: R07.9 Chest pain, unspecified (principal); E78.5 Hyperlipidemia, unspecified; I10 Essential (primary) hypertension; E66.9 Obesity, unspecified; K21.9 Gastro-esophageal reflux disease without esophagitis; Z79.01 Long term (current) use of anticoagulants; F32.9 Major depressive disorder, single episode, unspecified; G47.30 Sleep apnea, unspecified; Z68.39 Body mass index [BMI] 39.0-39.9, adult
CPT/HCPCS: 93005 ×2; 99285; 36415 ×2; 82553; 82550; 85025; 80053; 84484; 80061; 93017; 71010; 78452; 70450; 93010 ×2; G0378 ×3; A9500; J2785; A9270 ×5; J3490 ×2; Q9969